=== PATIENT | female | born 1960 | race Caucasian/White ===

== ENCOUNTER → 2023-11-05 | Outpatient (CLI) | payer BC | LOC: M RAD 15:49 | PROVIDERS: ATTEND Physician Assistant | DX: R22.42 Localized swelling, mass and lump, left lower limb (principal) ==

== ENCOUNTER 2024-12-25 19:00 | Inpatient (IN) | payer BC ==
[~2024-12-25] VITALS: Ht 162.6 cm; Wt 101.7 kg
[2024-12-25] MEDS ORDERED: METO1TAB32 PO (19:14)
[2024-12-25] MEDS ORDERED: FURO20TA2 PO (19:14)
[2024-12-25] MEDS ORDERED: LEVOTAB10 PO (19:14)
[2024-12-25] MEDS ORDERED: SPIR-10 PO (19:14)
[2024-12-25] MEDS ORDERED: ROSU40TA81 PO (19:14)
[2024-12-25] MEDS ORDERED: OMEP-173 PO (19:14)
[2024-12-25] MEDS ORDERED: EZET10TA21 PO (19:14)
[2024-12-25 22:06] LABS: BASO % 0.3 % (0.0-1.0); EOS # 0.2 10^3/uL (0.0-0.5); EOS % 1.4 % (0.0-3.0); HEMATOCRIT 45.1 % (36.0-47.0); HEMOGLOBIN 14.9 g/dl (12.0-15.5); LYMPH # 1.4 10^3/uL (1.5-5.0); LYMPH % 9.2 % (24.0-44.0); MEAN CORPUSCULAR HEMOGLOBIN 29.2 pg (27.0-33.0); MEAN CORPUSCULAR VOLUME 88.3 fl (80.0-96.0); MONO % 6.5 % (2.0-8.0); NEUTROPHILS # 12.5 10^3/uL (1.5-8.5); NEUTROPHILS % 82.1 % (36.0-66.0); PLATELET COUNT, AUTOMATED 229 10^3/uL (150-450); RED BLOOD COUNT 5.11 10^6/uL (4.00-5.40); WHITE BLOOD COUNT 15.2 10^3/uL (4.0-10.0)
[2024-12-25 22:19] LABS: INR 1.23; PARTIAL THROMBOPLASTIN TIME 28.9 SECONDS (24.8-34.2); PROTHROMBIN TIME 15.8 SECONDS (12.5-14.5)
[2024-12-25 22:30] LABS: LIPASE 478 U/L (12-53)
[2024-12-25 22:33] LABS: ALBUMIN 2.9 G/DL (3.2-5.2); ALKALINE PHOSPHATASE 327 U/L (35-104); ALT/SGPT 95 U/L (7.0-40); AST/SGOT 102 U/L (<34); BILIRUBIN,DIRECT 0.5 MG/DL (<0.4); BLOOD UREA NITROGEN 10 MG/DL (9-23); CALCIUM LEVEL 9.4 MG/DL (8.3-10.6); CARBON DIOXIDE LEVEL 28 MMOL/L (20-31); CHLORIDE LEVEL 101 MMOL/L (98-107); CREATININE FOR GFR 0.65 MG/DL (0.55-1.30); GLOMERULAR FILTRATION RATE > 60.0 (>45); GLUCOSE, FASTING 121 MG/DL (74-106); MAGNESIUM LEVEL 2.1 MG/DL (1.8-2.4); POTASSIUM SERUM 4.1 MMOL/L (3.5-5.1); SODIUM LEVEL 137 MMOL/L (136-145); TOTAL PROTEIN 6.4 G/DL (5.7-8.2)
[2024-12-25] MEDS ORDERED: ISOVUE-370 76% 100ML VIAL As Ordered ONE (22:48)
[2024-12-25 23:07] LABS: AMYLASE 274 U/L (30-118)
[2024-12-25] MEDS: MORPHINE 4 MG/ML 1ML VIAL IV ONE (23:42)
[2024-12-26] MEDS: NS (Normal Saline) 0.9% 1,000 ML IV ONE ×3 (00:29→17:56)
[2024-12-26] MEDS ORDERED: MOM 30ML SUSPENSION UDC PO PRN (02:30)
[2024-12-26] MEDS ORDERED: ACETAMINOPHEN 325 MG TAB PO PRN (02:30)
[2024-12-26] MEDS: PANTOPRAZOLE 40MG VIAL IV ONE (02:37)
[2024-12-26] MEDS: LR 1,000 ML IV ONE (02:38)
[2024-12-26 03:20] VITALS: BP 133/65; TEMP 97.3; O2SAT 95
[2024-12-26] MEDS: metroNIDAZOLE 500 MG in IV 1 EA IV SCH (03:33)
[2024-12-26] MEDS: NICOTINE 14 MG/24 HR TRANSDERMAL TD ONE (03:34)
[2024-12-26] MEDS: KETOROLAC 30 MG/ML 1ML VIAL IV PRN (03:35)
[2024-12-26] MEDS ORDERED: ALBU8.5H INH (04:22)
[2024-12-26] MEDS ORDERED: ASPI81TA26 PO (04:22)
[2024-12-26] MEDS ORDERED: IPRA2IN INH (04:22)
[2024-12-26] MEDS ORDERED: ALBU2.5V10 INH (04:22)
[2024-12-26] MEDS ORDERED: ACET-683 PO (04:22)
[2024-12-26] MEDS ORDERED: HOME MED LIST COMPLETE! XX SCH (04:25)
[2024-12-26 04:54] LABS: ALBUMIN 2.3 G/DL (3.2-5.2); ALKALINE PHOSPHATASE 269 U/L (35-104); ALT/SGPT 70 U/L (7.0-40); AST/SGOT 68 U/L (<34); BILIRUBIN,TOTAL 0.8 MG/DL (0.3-1.2); BLOOD UREA NITROGEN 10 MG/DL (9-23); CALCIUM LEVEL 8.1 MG/DL (8.3-10.6); CARBON DIOXIDE LEVEL 27 MMOL/L (20-31); CHLORIDE LEVEL 102 MMOL/L (98-107); GLOMERULAR FILTRATION RATE > 60.0 (>45); GLUCOSE, FASTING 113 MG/DL (74-106); POTASSIUM SERUM 3.5 MMOL/L (3.5-5.1); SODIUM LEVEL 136 MMOL/L (136-145); TOTAL PROTEIN 5.2 G/DL (5.7-8.2)
[2024-12-26 07:15] VITALS: BP 132/86; TEMP 97.7; O2SAT 94
[2024-12-26] MEDS: SUCRALFATE 1 GM TAB PO SCH (08:28)
[2024-12-26] MEDS: ENOXAPARIN 40MG/0.4ML SYRINGE (J1650 PER 10MG) SC SCH (08:28)
[2024-12-26 08:48] LABS: BASO # 0.1 10^3/uL (0.0-0.2); BASO % 0.4 % (0.0-1.0); EOS # 0.2 10^3/uL (0.0-0.5); EOS % 1.3 % (0.0-3.0); HEMATOCRIT 40.2 % (36.0-47.0); LYMPH # 1.5 10^3/uL (1.5-5.0); LYMPH % 11.7 % (24.0-44.0); MEAN CORPUSCULAR HEMOGLOBIN 29.1 pg (27.0-33.0); MEAN CORPUSCULAR HGB CONC 32.3 g/dl (32.0-36.5); MEAN CORPUSCULAR VOLUME 90.1 fl (80.0-96.0); MONO % 8.1 % (2.0-8.0); NEUTROPHILS % 78.1 % (36.0-66.0); PLATELET COUNT, AUTOMATED 201 10^3/uL (150-450); RED BLOOD COUNT 4.46 10^6/uL (4.00-5.40); WHITE BLOOD COUNT 12.8 10^3/uL (4.0-10.0)
[2024-12-26] MEDS: IPRATROPIUM 0.5MG/ALBUTEROL 2.5MG INH SOL UD 3ML (DUONEB) NEB ONE (09:00)
[2024-12-26] MEDS: ONDANSETRON 4MG 2ML VIAL IV PRN (09:33)
[2024-12-26] MEDS: PANTOPRAZOLE 40MG VIAL IV SCH (12:10)
[2024-12-26] MEDS: MORPHINE 2 MG/ML 1ML VIAL IV PRN (12:53)
[2024-12-26 12:58] VITALS: BP 142/81; TEMP 98.1; O2SAT 93
[2024-12-26 13:39] VITALS: BP 138/86; TEMP 97.5; O2SAT 91
[2024-12-26] MEDS: NS (Normal Saline) 0.9% 1,000 ML IV SCH (19:09)
[2024-12-26 19:31] VITALS: BP 135/68; TEMP 98.1; O2SAT 89
[2024-12-26] MEDS: ROSUVASTATIN 10 MG TAB (CRESTOR) PO SCH (20:18)
[2024-12-26] MEDS: MORPHINE 2 MG/ML 1ML VIAL IV ONE (20:18)
[2024-12-26] MEDS: EZETIMIBE 10MG TABLET (ZETIA) PO SCH (20:19)
[2024-12-26] MEDS: METOPROLOL SUCC *XL* 25MG TAB (TopROL *XL*) PO SCH (20:19)
[2024-12-27 03:58] VITALS: BP 154/76; TEMP 97.9; O2SAT 90
[2024-12-27 08:13] LABS: CHOLESTEROL LEVEL 105 MG/DL (<200); CHOLESTEROL RISK RATIO 3.71 (<5); HDL CHOLESTEROL 28.3 MG/DL (>40); LDL CHOLESTEROL 58.9 MG/DL (<100); NON-HDL-C 76.7 MG/DL; TRIGLYCERIDES LEVEL 89 MG/DL (<150)
[2024-12-27] MEDS: FLUBLOK(EGGFREE) TRIVAL(24-25) VACCINE PF 0.5ML SYRINGE 18YRS & OLDER IM.IMMUN ONE (08:38)
[2024-12-27 08:51] LABS: BASO % 0.1 % (0.0-1.0); EOS % 0.1 % (0.0-3.0); HEMATOCRIT 43.4 % (36.0-47.0); HEMOGLOBIN 14.2 g/dl (12.0-15.5); LYMPH # 0.7 10^3/uL (1.5-5.0); LYMPH % 3.8 % (24.0-44.0); MEAN CORPUSCULAR HEMOGLOBIN 29.4 pg (27.0-33.0); MEAN CORPUSCULAR HGB CONC 32.7 g/dl (32.0-36.5); MEAN CORPUSCULAR VOLUME 89.9 fl (80.0-96.0); MONO # 1.1 10^3/uL (0.0-0.8); MONO % 6.3 % (2.0-8.0); NEUTROPHILS # 15.4 10^3/uL (1.5-8.5); NEUTROPHILS % 89.2 % (36.0-66.0); PLATELET COUNT, AUTOMATED 231 10^3/uL (150-450); RED BLOOD COUNT 4.83 10^6/uL (4.00-5.40); WHITE BLOOD COUNT 17.3 10^3/uL (4.0-10.0)
[2024-12-27 08:55] LABS: BLOOD UREA NITROGEN 8 MG/DL (9-23); CALCIUM LEVEL 8.5 MG/DL (8.3-10.6); CARBON DIOXIDE LEVEL 24 MMOL/L (20-31); CHLORIDE LEVEL 103 MMOL/L (98-107); CREATININE FOR GFR 0.59 MG/DL (0.55-1.30); GLOMERULAR FILTRATION RATE > 60.0 (>45); GLUCOSE, FASTING 137 MG/DL (74-106); MAGNESIUM LEVEL 1.8 MG/DL (1.8-2.4); POTASSIUM SERUM 3.8 MMOL/L (3.5-5.1); SODIUM LEVEL 138 MMOL/L (136-145)
[2024-12-27] MEDS: NICOTINE 14 MG/24 HR TRANSDERMAL TD SCH (11:06)
[2024-12-27] MEDS ORDERED: PROMETHAZINE 25MG/ML 1ML VIAL IV PRN ×2 (11:40→13:00)
[2024-12-27 12:00] VITALS: BP 168/99; TEMP 98.1; O2SAT 92
[2024-12-27] MEDS: METOCLOPRAMIDE INJ 10MG/2ML VIAL IV PRN (16:05)
[2024-12-27 19:32] VITALS: BP 143/74; TEMP 98.4; O2SAT 90
[2024-12-27] MEDS: SENNA 8.6 MG TAB (SENOKOT) PO SCH (20:02)
[2024-12-27] MEDS: MOM 30ML SUSPENSION UDC PO SCH (20:04)
[2024-12-28 03:47] VITALS: BP 132/69; TEMP 97.9; O2SAT 94
[2024-12-28 06:18] LABS: BASO % 0.2 % (0.0-1.0); HEMATOCRIT 41.1 % (36.0-47.0); HEMOGLOBIN 13.4 g/dl (12.0-15.5); LYMPH # 0.8 10^3/uL (1.5-5.0); LYMPH % 3.5 % (24.0-44.0); MEAN CORPUSCULAR HEMOGLOBIN 29.1 pg (27.0-33.0); MEAN CORPUSCULAR HGB CONC 32.6 g/dl (32.0-36.5); MEAN CORPUSCULAR VOLUME 89.2 fl (80.0-96.0); MONO # 1.5 10^3/uL (0.0-0.8); MONO % 6.4 % (2.0-8.0); NEUTROPHILS # 20.6 10^3/uL (1.5-8.5); PLATELET COUNT, AUTOMATED 271 10^3/uL (150-450); RED BLOOD COUNT 4.61 10^6/uL (4.00-5.40); WHITE BLOOD COUNT 23.4 10^3/uL (4.0-10.0)
[2024-12-28] MEDS ORDERED: GLUCAGON INJ 1MG VIAL SC PRN (06:45)
[2024-12-28] MEDS ORDERED: GLUCOSE 4 GM CHEW PO PRN (06:45)
[2024-12-28] MEDS ORDERED: DEXTROSE 50% 50ML SYRINGE IV PRN (06:45)
[2024-12-28 06:53] LABS: ALBUMIN 1.9 G/DL (3.2-5.2); ALKALINE PHOSPHATASE 244 U/L (35-104); ALT/SGPT 27 U/L (7.0-40); AST/SGOT 19 U/L (<34); BLOOD UREA NITROGEN 9 MG/DL (9-23); CALCIUM LEVEL 8.6 MG/DL (8.3-10.6); CARBON DIOXIDE LEVEL 26 MMOL/L (20-31); CHLORIDE LEVEL 103 MMOL/L (98-107); CREATININE FOR GFR 0.73 MG/DL (0.55-1.30); GLOMERULAR FILTRATION RATE > 60.0 (>45); GLUCOSE, FASTING 143 MG/DL (74-106); SODIUM LEVEL 138 MMOL/L (136-145); TOTAL PROTEIN 5.1 G/DL (5.7-8.2)
[2024-12-28 07:12] LABS: LIPASE 320 U/L (12-53)
[2024-12-28] MEDS: MORPHINE 2 MG/ML 1ML VIAL IV ONE (07:59)
[2024-12-28 08:30] VITALS: BP 120/64; TEMP 97.5; O2SAT 93
[2024-12-28 09:06] LABS: PROCALCITONIN 0.69 ng/ml
[2024-12-28] MEDS: metroNIDAZOLE 500 MG in IV 1 EA IV SCH ×2 (10:05→17:43)
[2024-12-28] MEDS ORDERED: cefTRIAXone SOD 2 GM in DEXTROSE 5% (D5W) ADV/MINI-BAG 50 ML IV SCH (11:00)
[2024-12-28] MEDS: CIPROFLOXACIN 400 MG in IV 1 EA IV SCH (11:24)
[2024-12-28 11:38] LABS: PHOSPHORUS LEVEL 2.7 MG/DL (2.4-5.1)
[2024-12-28] MEDS ORDERED: SODIUM CHLORIDE 0.9% INJ 10 ML SYR IV PRN (13:10)
[2024-12-28 13:42] VITALS: BP 162/73; TEMP 98; O2SAT 94
[2024-12-28] MEDS: VANCOMYCIN HCL 1,000 MG, VIAL MATE ADAPTER 1 EACH in NS 250 ML IV ONE (14:00)
[2024-12-28 15:58] VITALS: BP 143/67; TEMP 98.5; O2SAT 94
[2024-12-28] MEDS: SODIUM CHLORIDE 0.9% INJ 10 ML SYR IV SCH (17:45)
[2024-12-28] MEDS: IPRATROPIUM 0.5MG/ALBUTEROL 2.5MG INH SOL UD 3ML (DUONEB) NEB PRN (17:54)
[2024-12-28] MEDS ORDERED: AMINO AC/ELECTROLYTE/DEX/CALC 2,000 ML IV SCH (18:00)
[2024-12-28] MEDS: AMINO AC/ELECTROLYTE/DEX/CALC 1,000 ML IV SCH (18:46)
[2024-12-28] MEDS: FAT EMULSION IV 250 ML IV ONE (18:47)
[2024-12-28] MEDS: VANCOMYCIN HCL 750 MG, VIAL MATE ADAPTER 1 EACH in NS 250 ML IV SCH (18:49)
[2024-12-28] MEDS: MORPHINE 4 MG/ML 1ML VIAL IV PRN (21:31)
[2024-12-29] VITALS: BP 156/74; TEMP 98.7; O2SAT 95
[2024-12-29] MEDS: FLUCONAZOLE 200 MG in IV 1 EA IV SCH (01:15)
[2024-12-29 06:46] LABS: BASO % 0.2 % (0.0-1.0); EOS % 0.2 % (0.0-3.0); HEMATOCRIT 39.7 % (36.0-47.0); LYMPH # 0.8 10^3/uL (1.5-5.0); MEAN CORPUSCULAR HEMOGLOBIN 29.5 pg (27.0-33.0); MEAN CORPUSCULAR HGB CONC 32.7 g/dl (32.0-36.5); MEAN CORPUSCULAR VOLUME 90.2 fl (80.0-96.0); MONO # 1.2 10^3/uL (0.0-0.8); MONO % 6.3 % (2.0-8.0); NEUTROPHILS # 17.2 10^3/uL (1.5-8.5); NEUTROPHILS % 88.1 % (36.0-66.0); PLATELET COUNT, AUTOMATED 251 10^3/uL (150-450); WHITE BLOOD COUNT 19.5 10^3/uL (4.0-10.0)
[2024-12-29 07:28] VITALS: BP 142/69; TEMP 98.6; O2SAT 95
[2024-12-29 07:36] LABS: LIPASE 324 U/L (12-53)
[2024-12-29 07:38] LABS: ALBUMIN 1.7 G/DL (3.2-5.2); ALKALINE PHOSPHATASE 224 U/L (35-104); ALT/SGPT 23 U/L (7.0-40); AST/SGOT 29 U/L (<34); BILIRUBIN,TOTAL 0.6 MG/DL (0.3-1.2); BLOOD UREA NITROGEN 11 MG/DL (9-23); CALCIUM LEVEL 8.6 MG/DL (8.3-10.6); CARBON DIOXIDE LEVEL 28 MMOL/L (20-31); CHLORIDE LEVEL 103 MMOL/L (98-107); CREATININE FOR GFR 0.73 MG/DL (0.55-1.30); GLOMERULAR FILTRATION RATE > 60.0 (>45); GLUCOSE, FASTING 149 MG/DL (74-106); MAGNESIUM LEVEL 2.2 MG/DL (1.8-2.4); POTASSIUM SERUM 3.9 MMOL/L (3.5-5.1); SODIUM LEVEL 137 MMOL/L (136-145); TOTAL PROTEIN 4.9 G/DL (5.7-8.2)
[2024-12-29] MEDS ORDERED: LIDOCAINE 1% MDV 20ML VIAL As Ordered ONE (09:46)
[2024-12-29] MEDS ORDERED: MIDAZOLAM INJ 2MG/2ML VIAL As Ordered ONE (09:49)
[2024-12-29] MEDS ORDERED: fentaNYL 100 MCG/2 ML INJECTION As Ordered ONE (09:49)
[2024-12-29] MEDS: LIDOCAINE 1% MDV 20ML VIAL SC ONE (09:55)
[2024-12-29] MEDS: fentaNYL 100 MCG/2 ML INJECTION IV SCH (10:00)
[2024-12-29] MEDS: MIDAZOLAM INJ 2MG/2ML VIAL IV SCH (10:00)
[2024-12-29 11:49] VITALS: BP 139/73; TEMP 98.8; O2SAT 92
[2024-12-29] MEDS: VANCOMYCIN HCL 750 MG, VIAL MATE ADAPTER 1 EACH in NS 250 ML IV ONE (13:57)
[2024-12-29 15:42] VITALS: BP 130/72; TEMP 98.5; O2SAT 90
[2024-12-29] MEDS: AMINO AC/ELECTROLYTE/DEX/CALC 1,000 ML IV SCH (18:05)
[2024-12-29] MEDS: FAT EMULSION IV 250 ML IV ONE (18:05)
[2024-12-29 20:10] VITALS: BP 156/72; TEMP 98.1; O2SAT 91
[2024-12-30] VITALS: BP 128/79; TEMP 98.9; O2SAT 98
[2024-12-30 04:00] VITALS: BP 135/73; TEMP 99.9; O2SAT 96
[2024-12-30 04:58] LABS: BASO % 0.2 % (0.0-1.0); EOS # 0.1 10^3/uL (0.0-0.5); EOS % 0.6 % (0.0-3.0); HEMATOCRIT 38.1 % (36.0-47.0); HEMOGLOBIN 12.3 g/dl (12.0-15.5); LYMPH # 0.6 10^3/uL (1.5-5.0); LYMPH % 3.8 % (24.0-44.0); MEAN CORPUSCULAR HEMOGLOBIN 29.3 pg (27.0-33.0); MEAN CORPUSCULAR HGB CONC 32.3 g/dl (32.0-36.5); MEAN CORPUSCULAR VOLUME 90.7 fl (80.0-96.0); MONO # 1.3 10^3/uL (0.0-0.8); MONO % 7.6 % (2.0-8.0); NEUTROPHILS # 14.7 10^3/uL (1.5-8.5); NEUTROPHILS % 86.4 % (36.0-66.0); PLATELET COUNT, AUTOMATED 239 10^3/uL (150-450)
[2024-12-30 05:15] LABS: ALBUMIN 1.6 G/DL (3.2-5.2); ALKALINE PHOSPHATASE 216 U/L (35-104); ALT/SGPT 19 U/L (7.0-40); AST/SGOT 31 U/L (<34); BILIRUBIN,TOTAL 0.5 MG/DL (0.3-1.2); BLOOD UREA NITROGEN 10 MG/DL (9-23); CALCIUM LEVEL 8.5 MG/DL (8.3-10.6); CARBON DIOXIDE LEVEL 30 MMOL/L (20-31); CHLORIDE LEVEL 101 MMOL/L (98-107); GLOMERULAR FILTRATION RATE > 60.0 (>45); GLUCOSE, FASTING 150 MG/DL (74-106); MAGNESIUM LEVEL 2.2 MG/DL (1.8-2.4); POTASSIUM SERUM 3.5 MMOL/L (3.5-5.1); SODIUM LEVEL 137 MMOL/L (136-145); TOTAL PROTEIN 4.7 G/DL (5.7-8.2)
[2024-12-30 08:00] VITALS: BP 121/58; TEMP 98.6; O2SAT 94
[2024-12-30] MEDS: ENOXAPARIN 40MG/0.4ML SYRINGE (J1650 PER 10MG) SC SCH (08:49)
[2024-12-30 09:44] LABS: PHOSPHORUS LEVEL 2.9 MG/DL (2.4-5.1)
[2024-12-30 11:44] VITALS: BP 120/60; TEMP 97.4; O2SAT 90
[2024-12-30] MEDS: guaiFENesin ER TABLET 600 MG TAB PO SCH (11:55)
[2024-12-30] MEDS: FAT EMULSION IV 250 ML IV ONE (18:22)
[2024-12-30] MEDS: MULTIVITAMIN -ADULT INJECTION 10 ML, ZINC/COPPER/MANGANESE/SELENIUM 1 ML in AMINO AC/EL... IV SCH (18:23)
[2024-12-30 19:47] VITALS: BP 162/73; TEMP 97.7; O2SAT 90
[2024-12-31] VITALS (25 sets, daily range): BP systolic 120–150; BP diastolic 66–74; TEMP 97.1–98.5; O2SAT 86–96
[2024-12-31 05:40] LABS: BASO % 0.3 % (0.0-1.0); EOS # 0.2 10^3/uL (0.0-0.5); EOS % 1.2 % (0.0-3.0); HEMATOCRIT 37.6 % (36.0-47.0); HEMOGLOBIN 12.1 g/dl (12.0-15.5); LYMPH # 1.2 10^3/uL (1.5-5.0); LYMPH % 7.8 % (24.0-44.0); MEAN CORPUSCULAR HEMOGLOBIN 28.8 pg (27.0-33.0); MEAN CORPUSCULAR HGB CONC 32.2 g/dl (32.0-36.5); MEAN CORPUSCULAR VOLUME 89.5 fl (80.0-96.0); MONO # 1.3 10^3/uL (0.0-0.8); MONO % 8.2 % (2.0-8.0); NEUTROPHILS # 12.6 10^3/uL (1.5-8.5); NEUTROPHILS % 81.4 % (36.0-66.0); PLATELET COUNT, AUTOMATED 233 10^3/uL (150-450); WHITE BLOOD COUNT 15.5 10^3/uL (4.0-10.0)
[2024-12-31 06:05] LABS: ALBUMIN 1.5 G/DL (3.2-5.2); ALKALINE PHOSPHATASE 182 U/L (35-104); ALT/SGPT 17 U/L (7.0-40); AST/SGOT 38 U/L (<34); BILIRUBIN,TOTAL 0.3 MG/DL (0.3-1.2); BLOOD UREA NITROGEN 11 MG/DL (9-23); CALCIUM LEVEL 7.9 MG/DL (8.3-10.6); CARBON DIOXIDE LEVEL 32 MMOL/L (20-31); CHLORIDE LEVEL 99 MMOL/L (98-107); CREATININE FOR GFR 0.78 MG/DL (0.55-1.30); GLOMERULAR FILTRATION RATE > 60.0 (>45); GLUCOSE, FASTING 140 MG/DL (74-106); MAGNESIUM LEVEL 2.4 MG/DL (1.8-2.4); POTASSIUM SERUM 3.5 MMOL/L (3.5-5.1); SODIUM LEVEL 137 MMOL/L (136-145); TOTAL PROTEIN 4.6 G/DL (5.7-8.2)
[2024-12-31] MEDS: FAT EMULSION IV 250 ML IV ONE (18:46)
[2024-12-31] MEDS: AMINO AC/ELECTROLYTE/DEX/CALC 1,000 ML IV SCH (18:46)
[2025-01-01] VITALS (25 sets, daily range): BP systolic 132–154; BP diastolic 69–80; TEMP 97.4–97.6; O2SAT 88–97
[2025-01-01 06:42] LABS: BASO # 0.1 10^3/uL (0.0-0.2); BASO % 0.4 % (0.0-1.0); EOS # 0.3 10^3/uL (0.0-0.5); EOS % 1.8 % (0.0-3.0); HEMATOCRIT 36.2 % (36.0-47.0); HEMOGLOBIN 11.8 g/dl (12.0-15.5); LYMPH % 7.2 % (24.0-44.0); MEAN CORPUSCULAR HEMOGLOBIN 29.5 pg (27.0-33.0); MEAN CORPUSCULAR HGB CONC 32.6 g/dl (32.0-36.5); MEAN CORPUSCULAR VOLUME 90.5 fl (80.0-96.0); MONO # 1.3 10^3/uL (0.0-0.8); MONO % 9.4 % (2.0-8.0); NEUTROPHILS # 10.8 10^3/uL (1.5-8.5); PLATELET COUNT, AUTOMATED 220 10^3/uL (150-450); WHITE BLOOD COUNT 13.7 10^3/uL (4.0-10.0)
[2025-01-01 07:14] LABS: ALBUMIN 1.5 G/DL (3.2-5.2); ALKALINE PHOSPHATASE 167 U/L (35-104); ALT/SGPT 15 U/L (7.0-40); AST/SGOT 35 U/L (<34); BILIRUBIN,TOTAL 0.3 MG/DL (0.3-1.2); BLOOD UREA NITROGEN 10 MG/DL (9-23); CALCIUM LEVEL 7.5 MG/DL (8.3-10.6); CARBON DIOXIDE LEVEL 32 MMOL/L (20-31); CHLORIDE LEVEL 99 MMOL/L (98-107); CREATININE FOR GFR 0.77 MG/DL (0.55-1.30); GLOMERULAR FILTRATION RATE > 60.0 (>45); GLUCOSE, FASTING 124 MG/DL (74-106); MAGNESIUM LEVEL 2.4 MG/DL (1.8-2.4); POTASSIUM SERUM 3.1 MMOL/L (3.5-5.1); SODIUM LEVEL 138 MMOL/L (136-145); TOTAL PROTEIN 4.5 G/DL (5.7-8.2)
[2025-01-01] MEDS ORDERED: KCL 10MEQ/100ML SWI (KRUN) 10 MEQ in IV 1 EA IV SCH (11:00)
[2025-01-01] MEDS: KCL 20MEQ IN 100ML SWI (KRUN) 20 MEQ in IV 1 EA IV SCH (12:24)
[2025-01-01] MEDS ORDERED: INSULIN LISPRO (NovoLOG) PER UNIT SC SCH (18:00)
[2025-01-01] MEDS: FAT EMULSION IV 250 ML IV ONE (18:46)
[2025-01-01] MEDS: AMINO AC/ELECTROLYTE/DEX/CALC 1,000 ML IV SCH (18:46)
[2025-01-01 21:16] LABS: BLOOD UREA NITROGEN 9 MG/DL (9-23); CALCIUM LEVEL 8.1 MG/DL (8.3-10.6); CARBON DIOXIDE LEVEL 33 MMOL/L (20-31); CHLORIDE LEVEL 100 MMOL/L (98-107); CREATININE FOR GFR 0.79 MG/DL (0.55-1.30); GLOMERULAR FILTRATION RATE > 60.0 (>45); GLUCOSE, FASTING 126 MG/DL (74-106); POTASSIUM SERUM 3.6 MMOL/L (3.5-5.1); SODIUM LEVEL 140 MMOL/L (136-145)
[2025-01-02] VITALS (13 sets, daily range): BP systolic 156–169; BP diastolic 74–81; TEMP 97.5–98.7; O2SAT 90–95
[2025-01-02 07:10] LABS: HEMATOCRIT 40.4 % (36.0-47.0); HEMOGLOBIN 12.9 g/dl (12.0-15.5); MEAN CORPUSCULAR HEMOGLOBIN 28.6 pg (27.0-33.0); MEAN CORPUSCULAR HGB CONC 31.9 g/dl (32.0-36.5); MEAN CORPUSCULAR VOLUME 89.6 fl (80.0-96.0); PLATELET COUNT, AUTOMATED 271 10^3/uL (150-450); RED BLOOD COUNT 4.51 10^6/uL (4.00-5.40); WHITE BLOOD COUNT 12.6 10^3/uL (4.0-10.0)
[2025-01-02 07:43] LABS: ALBUMIN 1.8 G/DL (3.2-5.2); ALKALINE PHOSPHATASE 329 U/L (35-104); ALT/SGPT 18 U/L (7.0-40); AST/SGOT 49 U/L (<34); BILIRUBIN,TOTAL 0.7 MG/DL (0.3-1.2); BLOOD UREA NITROGEN 9 MG/DL (9-23); CALCIUM LEVEL 8.2 MG/DL (8.3-10.6); CARBON DIOXIDE LEVEL 32 MMOL/L (20-31); CHLORIDE LEVEL 100 MMOL/L (98-107); CREATININE FOR GFR 0.85 MG/DL (0.55-1.30); GLOMERULAR FILTRATION RATE > 60.0 (>45); GLUCOSE, FASTING 125 MG/DL (74-106); MAGNESIUM LEVEL 2.6 MG/DL (1.8-2.4); POTASSIUM SERUM 3.7 MMOL/L (3.5-5.1); SODIUM LEVEL 139 MMOL/L (136-145); TOTAL PROTEIN 5.1 G/DL (5.7-8.2)
[2025-01-02 07:55] LABS: ATYPICAL LYMPH 1 % (0-5); EOSINOPHILS 3 % (0-3); LYMPHOCYTES 10 % (16-44); METAMYELOCYTES 1 % (0-0); MONOCYTES 5 % (0-5); NEUTROPHILS 74 % (28-66); PLATELET ESTIMATE NORMAL (NORMAL)
[2025-01-02] MEDS ORDERED: ALBUTEROL 90 MCG/ACT 8GM HFA INHALER INH PRN (09:55)
[2025-01-02] MEDS: IPRATROPIUM 0.5MG/ALBUTEROL 2.5MG INH SOL UD 3ML (DUONEB) NEB SCH (11:12)
[2025-01-02] MEDS: FAT EMULSION IV 250 ML IV ONE (18:11)
[2025-01-02] MEDS: MULTIVITAMIN -ADULT INJECTION 10 ML, ZINC/COPPER/MANGANESE/SELENIUM 1 ML in AMINO AC/EL... IV SCH (18:11)
[2025-01-03] VITALS (7 sets, daily range): BP systolic 134–169; BP diastolic 67–78; TEMP 97.3–97.8; O2SAT 93–96
[2025-01-03 05:55] LABS: BASO # 0.1 10^3/uL (0.0-0.2); BASO % 0.7 % (0.0-1.0); EOS # 0.3 10^3/uL (0.0-0.5); EOS % 2.7 % (0.0-3.0); HEMATOCRIT 35.8 % (36.0-47.0); HEMOGLOBIN 11.8 g/dl (12.0-15.5); LYMPH # 1.3 10^3/uL (1.5-5.0); LYMPH % 11.4 % (24.0-44.0); MEAN CORPUSCULAR HEMOGLOBIN 29.3 pg (27.0-33.0); MEAN CORPUSCULAR VOLUME 88.8 fl (80.0-96.0); MONO # 1.1 10^3/uL (0.0-0.8); MONO % 9.8 % (2.0-8.0); NEUTROPHILS # 7.5 10^3/uL (1.5-8.5); NEUTROPHILS % 67.9 % (36.0-66.0); PLATELET COUNT, AUTOMATED 241 10^3/uL (150-450); RED BLOOD COUNT 4.03 10^6/uL (4.00-5.40)
[2025-01-03 06:41] LABS: ALBUMIN 1.6 G/DL (3.2-5.2); ALKALINE PHOSPHATASE 350 U/L (35-104); ALT/SGPT 19 U/L (7.0-40); AST/SGOT 51 U/L (<34); BILIRUBIN,TOTAL 1.3 MG/DL (0.3-1.2); BLOOD UREA NITROGEN 8 MG/DL (9-23); CALCIUM LEVEL 7.5 MG/DL (8.3-10.6); CARBON DIOXIDE LEVEL 32 MMOL/L (20-31); CHLORIDE LEVEL 102 MMOL/L (98-107); CREATININE FOR GFR 0.79 MG/DL (0.55-1.30); GLOMERULAR FILTRATION RATE > 60.0 (>45); GLUCOSE, FASTING 125 MG/DL (74-106); MAGNESIUM LEVEL 2.4 MG/DL (1.8-2.4); POTASSIUM SERUM 3.2 MMOL/L (3.5-5.1); SODIUM LEVEL 140 MMOL/L (136-145); TOTAL PROTEIN 4.8 G/DL (5.7-8.2)
[2025-01-03] MEDS: POTASSIUM CHLORIDE 10MEQ SR TABLET PO ONE (08:12)
[2025-01-03] MEDS: SPIRONOLACTONE 25 MG TAB PO SCH (09:12)
[2025-01-03] MEDS: FUROSEMIDE 20 MG TAB PO SCH (09:12)
[2025-01-03] MEDS ORDERED: SUCR1TA PO (11:35)
[2025-01-03] MEDS ORDERED: CIPR-249 PO (11:35)
[2025-01-03] MEDS ORDERED: PANT40TA29 PO (11:35)
[2025-01-03] MEDS: METOPROLOL TART 25 MG TABLET PO ONE (12:37)
[2025-01-03] MEDS: BACITRACIN OINTMENT 30GM TUBE TOP ONE (12:38)
[2025-01-03] MEDS: CIPROFLOXACIN 500MG TABLET PO ONE (12:38)
== END 2025-01-03 15:02 | disposition home or self-care (01) | DRG 229 ==
LOC: M ED 19:00 → M ED INP 12-26 02:27 → M MS5PR 12-26 03:14 → M PCU 12-28 13:08
PROVIDERS: ADMIT Student in an Organized Health Care Education/Training Program; ATTEND Internal Medicine
PROC: 3E0436Z Introduction of Nutritional Substance into Central Vein, Percutaneous Approach (ICD-10-PCS; 2024-12-28)
PROC: 0W9H30Z Drainage of Retroperitoneum with Drainage Device, Percutaneous Approach (ICD-10-PCS; principal; 2024-12-29 10:00)
DX: K25.5 Chronic or unspecified gastric ulcer with perforation (principal); K65.1 Peritoneal abscess; K85.90 Acute pancreatitis without necrosis or infection, unspecified; K76.0 Fatty (change of) liver, not elsewhere classified; K86.89 Other specified diseases of pancreas; I25.2 Old myocardial infarction; J45.909 Unspecified asthma, uncomplicated; J44.9 Chronic obstructive pulmonary disease, unspecified; E78.5 Hyperlipidemia, unspecified; I10 Essential (primary) hypertension; K58.2 Mixed irritable bowel syndrome; F17.200 Nicotine dependence, unspecified, uncomplicated; K21.9 Gastro-esophageal reflux disease without esophagitis; I25.10 Atherosclerotic heart disease of native coronary artery without angina pectoris; Z90.49 Acquired absence of other specified parts of digestive tract; Z95.0 Presence of cardiac pacemaker; Z79.82 Long term (current) use of aspirin; Z79.899 Other long term (current) drug therapy; Z88.0 Allergy status to penicillin; Z88.5 Allergy status to narcotic agent; Z88.7 Allergy status to serum and vaccine